=== PATIENT | male | born 1970 | race American Indian/Alaskan Native ===

== ENCOUNTER 2019-06-13 05:01 | Emergency (ER) | payer OTHER ==
[2019-06-13 06:04] LABS: Basophils # (Auto) 0.1 K/mm3 (0.0-0.1); Basophils % (Auto) 0.6 % (0.0-1.8); Eosinophils # (Auto) 0.3 K/mm3 (0.0-0.4); Eosinophils % (Auto) 2.4 % (0.0-4.3); Hematocrit 45.5 % (35.5-45.6); Hemoglobin 15.6 gm/dl (11.8-15.2); Lymphocytes # (Auto) 1.8 K/mm3 (1.2-5.4); Lymphocytes % (Auto) 15.1 % (13.4-35.0); Mean Corpuscular HGB Conc 34 % (32-34); Mean Corpuscular Volume 89 fl (84-94); Monocytes # (Auto) 1.4 K/mm3 (0.0-0.8); Monocytes % (Auto) 11.3 % (0.0-7.3); Platelet Count 207 K/mm3 (140-440); Red Cell Distribution Width 14.3 % (13.2-15.2)
[2019-06-13 06:24] LABS: BUN/Creatinine Ratio 19; Blood Urea Nitrogen 15 mg/dL (9-20); Calcium 8.8 mg/dL (8.4-10.2); Hemolysis Index 8
[2019-06-13 06:40] LABS: Amphetamine Screen,Urine PRESUMPTIVE NEGATIVE; Benzodiazepines Screen,Urine PRESUMPTIVE NEGATIVE; Cannabinoid Screen,Urine PRESUMPTIVE NEGATIVE; Methadone Screen,Urine PRESUMPTIVE NEGATIVE; Opiate Screen,Urine PRESUMPTIVE NEGATIVE
[2019-06-13 06:41] LABS: Bilirubin,Urine NEG (Negative); Blood,Urine SM (Negative); Color,Urine Yellow (Yellow); Mucus,Urine 3+ /HPF; Protein,Urine <15 mg/dL mg/dL (Negative); Urobilinogen,Urine < 2.0 mg/dL (<2.0)
[2019-06-13 06:48] LABS: Cocaine Screen,Urine PRESUMPTIVE POSITIVE
--- NOTE | 2019-06-13 07:58 | Emergency Department Report ---
ED Psych HPI - General Chief Complaint: Psych Stated Complaint: SUICIDAL IDEATIONS Time Seen by Provider: 06/13/19 06:31 Source: patient, EMS Mode of arrival: Stretcher - History of Present Illness MD Complaint: suicidal ideation, feels depressed -: Gradual Associated Psychiatric Symptoms: depression, suicidal ideation, homicidal ideation History of same: Yes Quality: getting worse Improves With: none Worsens With: none Associated Symptoms: denies: confusion, headache, shortness of breath, nausea, vomiting, syncope Treatments Prior to Arrival: placed on mental he - Related Data Previous Rx's Medication Instructions Recorded Last Taken Type Cyclobenzaprine [Flexeril] 10 mg PO BID PRN #20 tablet 05/19/18 Unknown Rx Menthol/Camphor [[place] 1 applicatio TP QID PRN #1 tube 05/19/18 Unknown Rx Ointment] Naproxen 500 mg PO BID PRN #30 tablet 05/19/18 Unknown Rx Allergies Allergy/AdvReac Type Severity Reaction Status Date / Time poison adrian extract Allergy Rash Verified 05/19/18 17:43 ED Review of Systems ROS: Stated complaint: SUICIDAL IDEATIONS Other details as noted in HPI Other: GENERAL: No weight change, fatigue, fever, chills, or night sweats SKIN: No changes in skin or hair, no itching, no rashes, no jaundice HEAD: No trauma EYES: No blurriness, tearing, itching, acute visual loss, conjunctival discoloration, or scleral icterus EARS: No hearing loss, tinnitus, vertigo, or earache NOSE: No rhinorrhea, stuffiness, sneezing, itching, or epistaxis MOUTH: No bleeding gums, hoarseness, sore throat, or swelling CARDIAC: No new murmur, chest pain, palpitations, dyspnea on exertion, orthopnea, PND, or edema RESPIRATORY: Shortness of breath. No wheeze, cough, sputum production, hemoptysis GI: No abdominal pain, nausea, vomiting, dysphagia, diarrhea, constipation, hematemesis, melena, hematochezia URINARY: No frequency, urgency, polyuria, dysuria, hematuria, or incontinence MUSCULOSKELETAL: No muscle weakness, joint stiffness, decrease in range of motion, redness, swelling NEUROLOGIC: No headache, syncope, loss of sensation, numbness, tingling, tremors, weakness, paralysis, seizures HEMATOLOGIC: No anemia, easy bruising, bleeding, petechiae, or purpura ENDOCRINE: No hot or cold intolerance, sweating, polyuria, polydipsia or, polyphagia no thyroid problems. PSYCHIATRIC:SI/ depression ED Past Medical Hx - Past Medical History Hx Hypertension: Yes Hx Psychiatric Treatment: Yes (Bipolar) - Surgical History Additional Surgical History: right knee surgery to repair miniscus tear x 2 - Social History Smoking Status: Current Every Day Smoker - Medications Home Medications: Home Medications Medication Instructions Recorded Confirmed Last Taken Type Cyclobenzaprine [Flexeril] 10 mg PO BID PRN #20 tablet 05/19/18 Unknown Rx Menthol/Camphor [[place] 1 applicatio TP QID PRN #1 tube 05/19/18 Unknown Rx Ointment] Naproxen 500 mg PO BID PRN #30 tablet 05/19/18 Unknown Rx ED Physical Exam - General Limitations: No Limitations - Other Other exam information: GENERAL: Patient in no acute distress HEAD: Normocephalic, atraumatic EYES: PERRLA, EOM intact, no scleral icterus, no conjunctival hemorrhage, visual damon and acuity wnl NOSE: No tenderness, discharge, sinus tenderness MOUTH: No erythema, bleeding, exudate HEART: Regular rate and rhythm, no murmur, S1-S2 are auscultated, no edema, pulses are symmetric LUNGS: No respiratory distress. Bilateral breath sounds, No tachypnea, No retractions, No wheezing, rales, rhonchi ABDOMEN: Normal bowel sounds, abdomen soft, no tenderness, no rebound, no guarding, no distention, no masses, no CVA tenderness MUSCULOSKELETAL: Normal joint range of motion, no redness, no swelling, no tende rness NEUROLOGIC: GCS 15, Alert and Oriented x3, Cranial nerves intact, normal sensation, normal strength, no cerebellar deficit, NIHSS 0 PSYCHIATRIC: SI/HI, depression SKIN: Skin is warm and dry, no wounds, no rashes ED Course Vital Signs 06/13/19 05:58 Temperature 97.7 F Pulse Rate 76 Respiratory 18 Rate Blood Pressure 134/81 O2 Sat by Pulse 97 Oximetry ED Medical Decision Making - Lab Data Result diagrams: 06/13/19 05:53 06/13/19 05:53 Laboratory Results - last 24 hr 06/13/19 06/13/19 06/13/19 05:53 05:53 05:53 WBC 12.2 H RBC 5.10 H Hgb 15.6 H Hct 45.5 MCV 89 MCH 31 MCHC 34 RDW 14.3 Plt Count 207 Lymph % (Auto) 15.1 [place] % (Auto) 11.3 H Eos % (Auto) 2.4 Baso % (Auto) 0.6 Lymph # 1.8 Ed[place]ds # 1.4 H Eos # 0.3 Baso # 0.1 Seg Neutrophils % 70.6 H Seg Neutrophils # 8.6 H Sodium 140 Potassium 3.4 L Chloride 100.9 Carbon Dioxide 24 Anion Gap 19 BUN 15 Creatinine 0.8 Estimated GFR > 60 BUN/Creatinine Ratio 19 Glucose 109 H Calcium 8.8 Urine Color Urine Turbidity Urine pH Ur Specific [place] Urine Protein Urine Glucose (UA) Urine Ketones Urine Blood Urine Nitrite Urine Bilirubin Urine Urobilinogen Ur Leukocyte Esterase Urine WBC (Auto) Urine RBC (Auto) U Epithel Cells (Auto) Urine Mucus Salicylates < 0.3 L Urine Opiates Screen Urine Methadone Screen Acetaminophen Ur Barbiturates Screen Ur Phencyclidine Scrn Ur Amphetamines Screen U Benzodiazepines Scrn Urine Cocaine Screen U Marijuana (THC) Screen Drugs of Abuse Note Plasma/Serum Alcohol 06/13/19 06/13/19 06/13/19 05:53 05:53 05:58 WBC RBC Hgb Hct MCV MCH MCHC RDW Plt Count Lymph % (Auto) [place] % (Auto) Eos % (Auto) Baso % (Auto) Lymph # [place] # Eos # Baso # Seg Neutrophils % Seg Neutrophils # Sodium Potassium Chloride Carbon Dioxide Anion Gap BUN Creatinine Estimated GFR BUN/Creatinine Ratio Glucose Calcium Urine Color Yellow Urine Turbidity Clear Urine pH 5.0 Ur Specific [place] 1.013 Urine Protein <15 mg/dl Urine Glucose (UA) Neg Urine Ketones Neg Urine Blood Sm Urine Nitrite Neg Urine Bilirubin Neg Urine Urobilinogen < 2.0 Ur Leukocyte Esterase Neg Urine WBC (Auto) 1.0 Urine RBC (Auto) 2.0 U Epithel Cells (Auto) < 1.0 Urine Mucus 3+ Salicylates Urine Opiates Screen Urine Methadone Screen Acetaminophen < 5.0 L Ur Barbiturates Screen Ur Phencyclidine Scrn Ur Amphetamines Screen U Benzodiazepines Scrn Urine Cocaine Screen U Marijuana (THC) Screen Drugs of Abuse Note Plasma/Serum Alcohol 0.03 01/11/20 05:58 WBC RBC Hgb Hct MCV MCH MCHC RDW Plt Count Lymph % (Auto) [place] % (Auto) Eos % (Auto) Baso % (Auto) Lymph # [place] # Eos # Baso # Seg Neutrophils % Seg Neutrophils # Sodium Potassium Chloride Carbon Dioxide Anion Gap BUN Creatinine Estimated GFR BUN/Creatinine Ratio Glucose Calcium Urine Color Urine Turbidity Urine pH Ur Specific [place] Urine Protein Urine Glucose (UA) Urine Ketones Urine Blood Urine Nitrite Urine Bilirubin Urine Urobilinogen Ur Leukocyte Esterase Urine WBC (Auto) Urine RBC (Auto) U Epithel Cells (Auto) Urine Mucus Salicylates Urine Opiates Screen Presumptive negative Urine Methadone Screen Presumptive negative Acetaminophen Ur Barbiturates Screen Presumptive negative Ur Phencyclidine Scrn Presumptive negative Ur Amphetamines Screen Presumptive negative U Benzodiazepines Scrn Presumptive negative Urine Cocaine Screen Presumptive positive U Marijuana (THC) Screen Presumptive negative Drugs of Abuse Note Disclamer Plasma/Serum Alcohol - Medical Decision Making Patient medically clear for transfer Critical care attestation.: If time is entered above; I have spent that time in minutes in the direct care of this critically ill patient, excluding procedure time. ED Disposition Clinical Impression: Suicidal ideation Disposition: [id number] PSY HOSP/PSY UNIT Is pt being admited?: No Condition: Stable Referrals: DURAN TREJO MD [Primary Care Provider] - 3-5 Days
--- NOTE | 2019-06-14 11:11 | Consultation ---
History of Present Illness - Reason for Consult Consult date: 06/14/19 Reason for consult: Suicidal ideation - Chief Complaint Chief complaint: suicidal thoughts, depressed - History of Present Psychiatric Illness Reviewed the patient's medical chart and discussed the patient's progress with the nursing staff. The nurse note states the patient reportedly was suicidal overdose. Pt denies current SI/HI but does report auditory hallucination saying t"random stuff" like "you ain't shit" and "kill yourself". Pt sates that he currently feels safe. The RN entered into a verbal contract with patient to find staff if he has thoughts of hurting himself while in the ED. Pt states "I'll try."' Pt is calm and cooperative, AAO x 4 Catrachito Bustamante is a 49y/o male patient who states he was admitted into the hospital after he "called the ambulance for having thoughts of suicide." He is laying down. Awake. is speech is garbled. He is calm and cooperative. He makes fair eye contact. He is a/o x 3. The patient says he is having "strong thoughts of harming himself" because his "life is all screwed up. I'm tired of living like this." He says he did "cocaine" and "probably lost his job by now." The patient states he is "depressed." Says he's also "homicidal too." When asked why, he replies "I get angry because of it. I want to be normal again." He says he hears voices telling him to "kill himself and random stuff that don't make sense." He says he is a "weekend drinker" and he "smokes a half pack of cigarettes a day." He says he takes "risperidone injection" for bipolar but he has been off of them for "about 3 weeks." He says he sleeps good and his appetite is "alright." PAST PSYCHIATRIC HISTORY: Diagnoses: Bipolar, schizophrenia Suicide attempts or Self-harm behavior: twice Prior psychiatric hospitalizations: "alot, I can't count them." Substance Abuse history: Cocaine, alcohol Previous psychiatric medications tried: Risperidone injection, wellbutrin Outpatient treatment: yes REVIEW OF SYSTEMS Constitutional: Negative for weight loss ENT: Negative for stridor Respiratory: Negative for cough All other systems reviewed and are negative PAST MEDICAL HISTORY: HTN Family Psychiatric History None reported or documented SOCIAL HISTORY Marital Status: Living Arrangements: Alone Employment Status: Employed Access to guns/weapons: Denies Education: 12th grade History of Abuse: Denies Legal History: Denies MSE Appearance: In bed. Appropriate clothing. Fair eye contact. Behavior: calm and cooperative Mood: "Depressed" Affect: consisted with mood Thought Process: Goal directed Speech: Garbled Thought Content Harmfulness: Suicidal and homicidal Hallucinations: Auditory Delusions: none elicited Consciousness: Alert Cognition/Memory: Fair Insight/Judgment: Fair Assessment: Schizoaffective Disorder, Bipolar Type Substance induced Mood Disorder Treatment Plan Continue 1013 Medications: -Assess need for CIWA -Nicotine patch 14mg daily -Risperidone 0.5mg po BID -Trazodone 50mg po qhs -Melatonin 5mg po qhs prn -Prozac 10mg po day -Geodon 20mg IM q4h prn agitation Sitter: Defer to primary Medical: Per primary Disposition: The patient meets the requirement for acute inpatient hospitalization. Please transfer to acute facility when medically stable. Will continue to follow until the patient is transferred Legal Status: Voluntary Reaction to Hospitalization: Accepting Please call if you have any questions or concerns. Thank you for this consult. Medications and Allergies Allergies Allergy/AdvReac Type Severity Reaction Status Date / Time poison adrian extract Allergy Rash Verified 05/19/18 17:43 Home Medications Medication Instructions Recorded Confirmed Last Taken Type Cyclobenzaprine [Flexeril] 10 mg PO BID PRN #20 tablet 05/19/18 Unknown Rx Menthol/Camphor [[place] 1 applicatio TP QID PRN #1 tube 05/19/18 Unknown Rx Ointment] Naproxen 500 mg PO BID PRN #30 tablet 05/19/18 Unknown Rx Mental Status Exam - Vital signs Last Vital Signs Temp 97.9 F 06/14/19 09:34 Pulse 71 06/14/19 09:34 Resp 18 06/14/19 02:26 BP 147/83 06/14/19 09:34 Pulse Ox 97 06/14/19 09:34 Results Result Diagrams: 06/13/19 05:53 06/13/19 05:53 All other labs normal.
[2019-06-14] MEDS ORDERED: ZIPRASIDONE MESYLATE 20 MG VIAL IM PRN (11:13)
[2019-06-14] MEDS: FLUoxetine 10 MG TAB PO SCH (12:33)
[2019-06-14] MEDS: NICOTINE 14 MG/24 HR PATCH TD SCH (12:33)
[2019-06-14] MEDS: traZODone 50 MG TAB PO SCH (21:50)
[2019-06-14] MEDS ORDERED: risperiDONE 0.25 MG TAB PO SCH (22:00)
[2019-06-14] MEDS ORDERED: MELATONIN 5 MG TAB PO PRN (22:00)
[2019-06-15] MEDS: amLODIPine 5 MG TAB PO SCH (10:30)
[2019-06-15] MEDS: FLUoxetine 10 MG TAB PO SCH (10:31)
[2019-06-15] MEDS: NICOTINE 14 MG/24 HR PATCH TD SCH (10:31)
--- NOTE | 2019-06-15 14:27 | Progress Note ---
Subjective - Reason for Consult Consult date: 06/15/19 Reason for consult: manage mental health - Chief Complaint Chief complaint: During my interview with the patient this morning, he was lying down. He is a/o x 3. Dressed appropriately. He is calm and cooperative. When asked how was he doing, the patient moved his hand back and forth and replied, "so-so." They patient says he "feels low." He says he's "still having suicidal thoughts but it's just a little." He denies homicidal thoughts. He says he "slept alright." He says his appetite is "okay." The patient says he "hears negatives voices" but says "they are better today." REVIEW OF SYSTEMS Constitutional: Negative for weight loss ENT: Negative for stridor Respiratory: Negative for cough All other systems reviewed and are negative MSE Appearance: In bed. Appropriate clothing. Fair eye contact. Behavior: calm and cooperative Mood: "low" Affect: consisted with mood Thought Process: Goal directed Speech: Garbled Thought Content Harmfulness: Suicidal Hallucinations: Auditory Delusions: none elicited Consciousness: Alert Cognition/Memory: Fair Insight/Judgment: Fair Assessment: Schizoaffective Disorder, Bipolar Type Substance induced Mood Disorder Treatment Plan Continue 1013 Medications: Continue current regimen Sitter: Defer to primary Medical: Per primary Disposition: The patient meets the requirement for acute inpatient hospitalization. Please transfer to acute facility when medically stable. Will continue to follow until the patient is transferred Spoke with patient about medication, and treatment plan. The patient agrees with the plan. Mental Status Exam - Vital signs Last Vital Signs Temp 98.3 F 06/15/19 08:00 Pulse 81 06/15/19 08:00 Resp 15 06/15/19 08:00 BP 114/65 06/15/19 08:00 Pulse Ox 98 06/15/19 08:00
[2019-06-15] MEDS: traZODone 50 MG TAB PO SCH (23:15)
[2019-06-16] MEDS: FLUoxetine 10 MG TAB PO SCH (10:00)
[2019-06-16] MEDS: amLODIPine 5 MG TAB PO SCH (11:00)
[2019-06-16] MEDS: NICOTINE 14 MG/24 HR PATCH TD SCH (11:32)
[2019-06-16] MEDS ORDERED: FLUoxetine 10 MG TAB PO SCH (11:48)
--- NOTE | 2019-06-16 11:48 | Progress Note ---
Subjective - Reason for Consult Consult date: 06/16/19 Reason for consult: Manage mental health - Chief Complaint Chief complaint: During my interview with the patient this morning, he was lying down. He is a/o x 3. Dressed appropriately. He is calm and cooperative. He makes fair eye contact. He says he is "depressed." His affect is consistent with his mood. He says he "is not sleeping too good," and "the trazodone doesn't work." Mr. Bustamante says he is still having suicidal thoughts. He says the "voices are not that bad." REVIEW OF SYSTEMS Constitutional: Negative for weight loss ENT: Negative for stridor Respiratory: Negative for cough All other systems reviewed and are negative MSE Appearance: In bed. Appropriate clothing. Fair eye contact. Behavior: calm and cooperative Mood: "depressed" Affect: consisted with mood Thought Process: Goal directed Speech: Garbled Thought Content Harmfulness: Suicidal Hallucinations: Auditory Delusions: none elicited Consciousness: Alert Cognition/Memory: Fair Insight/Judgment: Fair Assessment: Schizoaffective Disorder, Bipolar Type Substance induced Mood Disorder Treatment Plan Continue 1013 Medications: Increased Prozac 20mg po daily Scheduled Melatonin 5mg po qhs Sitter: Defer to primary Medical: Per primary Disposition: The patient meets the requirement for acute inpatient hospitalization. Please transfer to acute facility when medically stable. Will continue to follow until the patient is transferred Spoke with patient about medication, and treatment plan. The patient agrees with the plan. Mental Status Exam - Vital signs Last Vital Signs Temp 97.8 F 06/16/19 07:00 Pulse 78 06/16/19 07:00 Resp 16 06/16/19 07:00 BP 134/94 06/16/19 07:00 Pulse Ox 97 06/16/19 07:00
[2019-06-16] MEDS: MELATONIN 5 MG TAB PO SCH (22:07)
[2019-06-16] MEDS: DOXEPIN 10 MG CAP PO SCH (22:07)
[2019-06-17] MEDS: NICOTINE 14 MG/24 HR PATCH TD SCH (10:46)
[2019-06-17] MEDS: amLODIPine 5 MG TAB PO SCH (10:46)
--- NOTE | 2019-06-17 15:38 | Progress Note ---
Subjective - Reason for Consult Consult date: 06/17/19 Reason for consult: depression, SI - Chief Complaint Chief complaint: During my interview with the patient this morning, he was lying down. Asleep. Easily arouses. He is a/o x 3. Dressed appropriately. He is calm and cooperative. He makes fair eye contact. His affect is flat. The patient says, "I'm getting there. But still not too good," when asked how he was feeling. He says he's still having "suicidal thoughts" but denies a plan. He asked if I changed his meds, and states "it was good. It made me sleep." He says "sometimes I do" when asked about hallucinations. Mr. Bustamante denies any problems with his appetite. REVIEW OF SYSTEMS Constitutional: Negative for weight loss ENT: Negative for stridor Respiratory: Negative for cough All other systems reviewed and are negative MSE Appearance: Lying down. Appropriate clothing. Fair eye contact. Behavior: calm and cooperative Mood: "depressed, not good" Affect: Flat Thought Process: Goal directed Speech: Garbled Thought Content Harmfulness: Suicidal Hallucinations: Auditory Delusions: none elicited Consciousness: Alert Cognition/Memory: Fair Insight/Judgment: Fair Assessment: Schizoaffective Disorder, Bipolar Type Substance induced Mood Disorder Treatment Plan Continue 1013 Medications: Continue current meds. No changes made today. Sitter: Defer to primary Medical: Per primary Disposition: The patient meets the requirement for acute inpatient hospitalization. Please transfer to acute facility when medically stable. Will continue to follow until the patient is transferred Spoke with patient about medications, and treatment plan. The patient agrees with the plan. Mental Status Exam - Vital signs Last Vital Signs Temp 97.6 F 06/17/19 13:49 Pulse 75 06/17/19 13:49 Resp 18 06/17/19 13:49 BP 121/74 06/17/19 13:49 Pulse Ox 99 06/17/19 13:49
[2019-06-17 22:02] VITALS: BP 144/89
[2019-06-17] MEDS: MELATONIN 5 MG TAB PO SCH (23:04)
[2019-06-18] MEDS: DOXEPIN 10 MG CAP PO SCH (00:43)
== END 2019-06-18 02:21 ==
LOC: EEVIPCON 05:01 → ED 05:01
DX: F31.9 Bipolar disorder, unspecified (principal); I10 Essential (primary) hypertension; F17.200 Nicotine dependence, unspecified, uncomplicated; Z79.899 Other long term (current) drug therapy; Z98.890 Other specified postprocedural states; Z91.041 Radiographic dye allergy status
CPT/HCPCS: 36415; 80048; 80307; 80320; 81001; 85025; G0480